=== PATIENT | male | born 1970 | race Caucasian/White ===

== ENCOUNTER → 2023-08-05 | Outpatient (REF) | payer OTHER ==
[~2023-08-05] MED LIST: ALPRTAB5 PO; AMLO1TAB24 PO; BISO5TAB14 PO; DRIS50003 PO; LATU20TA PO; LEXA1TAB2 PO; METF-817 PO; TOPI-21 PO
[2023-08-05 17:59] LABS: APPEARANCE, URINE HAZY (CLEAR); BACTERIA, URINE AUTO NEGATIVE (NEGATIVE); BILIRUBIN, URINE AUTO NEGATIVE (NEGATIVE); BLOOD, URINE BLOOD NEGATIVE (NEGATIVE); CALCIUM OXALATE CRYSTALS SMALL; COLOR, URINE YELLOW (YELLOW); GLUCOSE, URINE (UA) AUTO 3+ mg/dL (NEGATIVE); KETONE, URINE AUTO NEGATIVE (NEGATIVE); LEUKOCYTE ESTERASE, URINE AUTO NEGATIVE (NEGATIVE); MUCUS, URINE SMALL (NEGATIVE); NITRITE, URINE AUTO NEGATIVE (NEGATIVE); PROTEIN, URINE AUTO 1+ mg/dL (NEGATIVE); RBC, URINE AUTO 0 /HPF (0-3); SPECIFIC GRAVITY URINE AUTO 1.025 (1.002-1.035); SQUAMOUS EPITHELIAL CELL UR AU 0 /HPF (0-6); WBC, URINE AUTO 2 /HPF (0-3)
== END ==
LOC: M SMT 16:56
PROVIDERS: ATTEND Urology
DX: Z87.440 Personal history of urinary (tract) infections (principal)

== ENCOUNTER → 2023-08-24 | Outpatient (CLI) | payer OTHER ==
[2023-08-24 12:41] LABS: BASO # 0.1 10^3/uL (0.0-0.2); BASO % 1.1 % (0.0-1.0); EOS # 0.3 10^3/uL (0.0-0.5); EOS % 4.5 % (0.0-3.0); HEMATOCRIT 41.8 % (42.0-52.0); HEMOGLOBIN 14.1 g/dl (13.5-17.5); LYMPH # 2.3 10^3/uL (1.5-5.0); MEAN CORPUSCULAR HEMOGLOBIN 28.5 pg (27.0-33.0); MEAN CORPUSCULAR HGB CONC 33.7 g/dl (32.0-36.5); MEAN CORPUSCULAR VOLUME 84.4 fl (80.0-96.0); MONO # 0.4 10^3/uL (0.0-0.8); MONO % 5.7 % (2.0-8.0); NEUTROPHILS # 4.3 10^3/uL (1.5-8.5); NEUTROPHILS % 57.4 % (36.0-66.0); PLATELET COUNT, AUTOMATED 224 10^3/uL (150-450); RED BLOOD COUNT 4.95 10^6/uL (4.30-6.10); WHITE BLOOD COUNT 7.5 10^3/uL (4.0-10.0)
[2023-08-24 12:51] LABS: ERYTHROCYTE SEDIMENTATION RATE 18 mm/hr (0-20)
== END ==
LOC: M PLALAB 10:50
PROVIDERS: ATTEND Internal Medicine Infectious Disease
DX: A49.01 Methicillin susceptible Staphylococcus aureus infection, unspecified site (principal)

== ENCOUNTER 2024-10-07 06:24 | Day surgery (SDC) | payer OTHER ==
[~2024-10-07] VITALS: Ht 160 cm; Wt 124.6 kg
[~2024-10-07 06:24] MED LIST changes: +ATOR40TA75 PO; +CLOP75TA2 PO; +ERGO500029 PO; +GLIM4TAB5 PO; +IPRA0.00 INH; +LISI20TA33 PO; +METF-1156 PO; -METF-817 PO; +PANT40TA29 PO; +REXU1TAB4 PO; +SEMA0.257; +TAMS1CAP17 PO; +TOPA50TA8 PO; +ceFAZolin SOD 2 GM IV ONCE IV ONE
[2024-10-07] MEDS ORDERED: LR 1,000 ML IV SCH (06:25)
[2024-10-07] MEDS ORDERED: BACL10TA2 PO (06:51)
[2024-10-07] MEDS ORDERED: ACET650T61 PO (06:51)
[2024-10-07] MEDS ORDERED: MIDAZOLAM INJ 2 MG/2 ML VIAL As Ordered ONE (07:39)
[2024-10-07] MEDS ORDERED: KETAMINE HCL 200 MG/20 ML VIAL As Ordered ONE (07:41)
[2024-10-07] MEDS: ceFAZolin SOD 3 GM in DEXTROSE 5% (D5W) MINI-BAG PLU 1... IV ONE (07:44)
[2024-10-07] MEDS: LIDOCAINE 1% SDV 30 ML VIAL As Ordered ONE (07:59)
[2024-10-07] MEDS ORDERED: ACETAMINOPHEN 1000MG/100ML IV BAG As Ordered ONE (08:31)
[2024-10-07] MEDS ORDERED: OXYC1TAB23 PO (09:22)
[2024-10-07 09:41] VITALS: BP 140/0; TEMP 97.5; O2SAT 99
== END 2024-10-07 10:02 | disposition home or self-care (01) ==
LOC: M SDC 06:24
PROVIDERS: ATTEND Urology
DX: N48.1 Balanitis (principal); E11.9 Type 2 diabetes mellitus without complications; G47.30 Sleep apnea, unspecified; Z86.73 Personal history of transient ischemic attack (TIA), and cerebral infarction without residual deficits; Z98.84 Bariatric surgery status; Z68.42 Body mass index [BMI] 45.0-49.9, adult; Z88.8 Allergy status to other drugs, medicaments and biological substances; Z79.899 Other long term (current) drug therapy
CPT/HCPCS: 54161; 88304; J0131; J0665; J0690; J2250